=== PATIENT | female | born 1990 | race Caucasian/White ===

== ENCOUNTER 2018-10-29 19:08 | Emergency (ER) | payer OTHER ==
[~2018-10-29] VITALS: Ht 157.5 cm; Wt 43.1 kg
[~2018-10-29 19:08] MED LIST: ACYCLOVIR 400400 MG PO; AZO95 MG PO; IBUPROFEN200 M2 PO
[2018-10-29 19:26] LABS: URINE BILIRUBIN NEGATIVE (Negative); URINE BLOOD 1+ (Negative); URINE CLARITY CLEAR; URINE COLOR YELLOW; URINE GLUCOSE-RANDOM NEGATIVE (Negative); URINE KETONES NEGATIVE (Negative); URINE LEUKOCYTES 1+ (Negative); URINE NITRITE NEGATIVE (Negative); URINE PROTEIN NEGATIVE (Negative); URINE SPECIFIC GRAVITY 1.025 (1.005-1.030); URINE UROBILINOGEN 0.2 E.U./dl (0.2-1.0)
[2018-10-29 19:35] LABS: CASTS None Seen /LPF (None Seen); CRYSTALS None Seen /LPF (None Seen); SQUAMOUS 0-3 Few /LPF (0-3); URINE RBC 0-2 Rare /HPF (0-2); URINE WBC 6-15 Few /HPF (0-5)
[2018-10-29 20:17] VITALS: BP 110/58
== END 2018-10-29 20:19 | disposition home or self-care (01) ==
LOC: M.ERS 19:08
PROVIDERS: Nurse Practitioner Family
DX: A64 Unspecified sexually transmitted disease (principal); F17.210 Nicotine dependence, cigarettes, uncomplicated; Z86.2 Personal history of diseases of the blood and blood-forming organs and certain disorders involving the immune mechanism; Z88.6 Allergy status to analgesic agent; Z88.2 Allergy status to sulfonamides; Z88.1 Allergy status to other antibiotic agents; Z88.8 Allergy status to other drugs, medicaments and biological substances